=== PATIENT | male | born 2000 | race African-American/Black ===

== ENCOUNTER 2019-09-08 22:18 | Emergency (ER) | payer OTHER ==
[~2019-09-08] VITALS: Ht 175.3 cm; Wt 74.8 kg
[2019-09-09 00:55] VITALS: BP 116/74
== END 2019-09-09 00:56 | disposition home or self-care (01) ==
LOC: ER 22:18
DX: M54.2 Cervicalgia (principal); R07.81 Pleurodynia; M25.562 Pain in left knee; M25.512 Pain in left shoulder; V89.2XXA Person injured in unspecified motor-vehicle accident, traffic, initial encounter; Y93.89 Activity, other specified; Y92.89 Other specified places as the place of occurrence of the external cause; Y99.8 Other external cause status